=== PATIENT | male | born 1930 | race Caucasian/White ===

== ENCOUNTER 2016-12-07 09:52 | Emergency (ER) | payer OTHER ==
[~2016-12-07] VITALS: Wt 86.0 kg
[~2016-12-07 09:52] MED LIST: ASPI81TA3 PO; BACTDS PO; CEPH-443 PO; LEVE-5 PO; LISI20TA11 PO
[2016-12-07] MEDS ORDERED: DIPHTH/TET/ACEL PERTUSS (ADULT) 0.5 ML VIAL IM* ONE (11:00)
[2016-12-07] MEDS ORDERED: ACETAMINOPHEN 500 MG TAB PO ONE (11:00)
--- NOTE | 2016-12-07 11:50 | RADRPT ---
PROCEDURE: CT Brain without contrast. CLINICAL INDICATION: Pain, headache TECHNIQUE: Routine CT scan of the brain was performed on a high resolution multi detector scanner without intravenous contrast. One or more of the following dose reduction techniques were used: Auto mated exposure control; Adjustment of the mA and/or kV according to patient size; Use of iterative r econstruction technique. CTDI = 45 mGy. DLP = 720 mGy-cm. COMPARISON: No prior relevant examinations are available for comparison. FINDINGS: Hemorrhage: No evidence of intracranial hemorrhage. Acute ischemic changes: No evidence of acute ischemic changes. Mass effect/Midline shift: None. Parenchymal volume: Moderate central parenchymal volume loss is evident. Ventricular system: Concordant with parenchymal volume. Chronic changes: There are numerous and confluent areas of significant low attenuation change within the supratentorial white matter most compatible with severe chronic microvascular ischemic changes. Atherosclerotic calcifications of the cavernous portions of both internal carotid arteries are prese nt. Extracranial soft tissues: Right parietal scalp hematoma. Calvarium: No fractures. Paranasal sinuses: Visualized paranasal sinuses are clear. Mastoid air cells: Visualized mastoid air cells are clear. IMPRESSION: No acute intracranial abnormalities. Severe chronic-appearing microvascular ischemic changes of the supratentorial white matter. Right parietal scalp hematoma without underlying fracture. RPTAT: AADD .Sonu Shah MD, Date Time Electronically viewed and signed by .Sonu Shah MD, on 12/07/2016 11:50 .B/
--- NOTE | 2016-12-07 11:57 | RADRPT ---
PROCEDURE: CT Cervical Spine without contrast. CLINICAL INDICATION: Trauma. TECHNIQUE: Noncontrast CT of the cervical spine was performed with axial images. Coronal and sagitta l images were also performed. The administered radiation dose was CTDI vol = 22.24 mGy, DLP = 500.2 8 mGy-cm. COMPARISON: There are no similar studies submitted for comparison. FINDINGS: There is straightening of the normal cervical lordosis. The vertebral body heights are maintained. There is no destructive osseous lesion. No acute fracture is identified. There is mild to moderate C3-C4, moderate C4-C5, severe C5-C6, severe C6-C7, and severe C7-T1 disk s pace narrowing. C2-C3 : There is a 1 mm broad-based disk bulge without spinal canal or bilateral foraminal stenosis. There is mild left facet arthropathy. C3-C4 : There is trace anterolisthesis with a 2 mm central disk/osteophyte protrusion with mild spin al canal stenosis. There is severe right with mild left facet arthropathy and bilateral uncovertebr al hypertrophy causing severe right without left foraminal stenosis. This affects the exiting right C4 nerve root. C4-C5 : There is trace anterolisthesis with a broad-based pseudo disk bulge contacting the spinal co rd without spinal canal stenosis. There is severe right with moderate left facet arthropathy and bi lateral uncovertebral hypertrophy causing severe right with moderate to severe left foraminal stenos is. This affects the exiting bilateral C5 nerve roots. C5-C6 : There is a 2 mm broad-based disk osteophyte complex mildly indenting the spinal cord with mi ld to moderate spinal canal stenosis. There is moderate right and mild left facet arthropathy and b ilateral uncovertebral hypertrophy causing severe right with moderate to severe left foraminal steno sis. This affects the exiting bilateral C6 nerve roots. C6-C7 : There is a 4 mm left subarticular disk osteophyte complex mildly indenting the spinal cord w ith moderate spinal canal stenosis. There is bilateral uncovertebral hypertrophy causing severe lef t with moderate right foraminal stenosis. This affects the exiting left C7 nerve root. C7-T1 : There is a 2 mm circumferential disk osteophyte complex with mild spinal canal stenosis. Th ere is mild bilateral facet arthropathy and bilateral uncovertebral hypertrophy causing severe bilat eral foraminal stenosis. This affects the exiting bilateral C8 nerve roots. IMPRESSION: 1. No acute fracture. 2. Multilevel spinal canal stenosis most pronounced at C6-C7 where there is a left subarticular disk osteophyte complex mildly indenting the spinal cord with moderate spinal canal stenosis. There is l imited evaluation of the spinal cord on CT. If clinically considered for spinal cord contusion, non contrast MRI of the cervical spine may be performed as clinically warranted. 3. Multilevel bilateral foraminal stenosis affecting the exiting right C4, bilateral C5, bilateral C 6, left C7, and bilateral C8 nerve roots as detailed above. Further findings as detailed above. RPTAT: PP .Harrison Cagle MD, MD Date Time Electronically viewed and signed by .Harrison Cagle MD, MD on 12/07/2016 11:57 .F/
--- NOTE | 2016-12-07 11:58 | ERD ---
ER Documentation Chief Complaint Date/Time DATE: 12/07/16 TIME: 11:55 Chief Complaint fell from a standing position and has scalp laceration. no loc per family HPI Mr. Alcazar is a very pleasant 86-year-old gentleman who had a mechanical fall. The patient states that he tripped while walking near a curb. He states that his feet became tangled. He denied any prodrome of chest pain or shortness of breath. The patient fell backwards hitting his head. The patient has a large occipital hematoma with associated abrasion. Unknown tetanus. No loss of consciousness. He denies any neck pain. No other musculoskeletal pain. He denies taking anticoagulant medication. ROS All systems reviewed and are negative except as per history of present illness. Medications Home Meds Reported Medications Lisinopril* (Lisinopril*) 20 Mg Tablet, 20 MG PO DAILY, #30 TAB 05/30/16 Aspirin* (Aspirin* Chew) 81 Mg Tab.chew, 81 MG PO DAILY, TAB.CHEW 05/30/16 Levetiracetam* (Keppra*) 500 Mg Tablet, 500 MG PO BID, TAB 05/30/16 Discontinued Scripts Cephalexin* (Keflex*) 500 Mg Capsule, 500 MG PO QID for 7 Days, CAP Prov:CHAKA GIRALDO MD 05/30/16 Sulfamethoxazole-Trimethoprim* (Bactrim* DS) 800-160 Mg Tab, 1 TAB PO BID for 7 Days, TAB Prov:CHAKA GIRALDO MD 05/30/16 Allergies Allergies: Coded Allergies: No Known Allergy (Unverified , 12/07/16) PMhx/Soc History of Surgery: Yes (CATARACTS; SKIN CANCER) Anesthesia Reaction: No Hx Neurological Disorder: No Hx Respiratory Disorders: No Hx Cardiac Disorders: Yes (HTN) Hx Psychiatric Problems: No Hx Alcohol Use: No Hx Substance Use: No Hx Tobacco Use: No FmHx Family History: No diabetes Physical Exam Vitals Vital Signs Date Time Temp Pulse Resp B/P Pulse Ox O2 Delivery O2 Flow Rate FiO2 12/07/16 09:58 97.9 76 16 228/108 96 Physical Exam Airway is intact Bilateral breath sounds Strong distal pulses No obvious deficits General: Well developed, well nourished, no acute distress Head: Normocephalic, atraumatic, other than a 2 cm occipital scalp laceration with associated abrasion Eyes: Pupils equally reactive, EOM intact ENT: Moist mucous membranes Neck: Supple, no lymphadenopathy, No midline tenderness, deformities, step-offs to the cervical spine, full active and passive range of motion without midline pain. Respiratory: Lungs clear bilaterally, no distress, no chest wall tenderness, no crepitus Cardiovascular: RRR, no murmurs, rubs, or gallops Abdominal: Soft, non-tender, non-distended, no peritoneal signs, pelvis is stable : Deferred MSK: No edema, no unilateral swelling, 5/5 strength, no midline tenderness deformities or step-offs to the thoracolumbar spine Neurologic: Alert and oriented, moving all extremities, normal speech, no focal weakness, no cerebellar signs Skin: No ecchymoses or bruising to the chest or abdomen. Scalp hematoma and abrasion as documented above Psych: Normal mood Results 24 hrs Current Medications Medications (Trade) Dose Ordered Sig/Luis Route PRN Reason Start Time Stop Time Status Last Admin Dose Admin Acetaminophen (Tylenol Tab) 1,000 mg ONCE ONCE PO 12/07/16 11:00 12/07/16 11:01 DC Diphtheria/ Tetanus/Acell Pertussis (Adacel) 0.5 ml ONCE ONCE IM* 12/07/16 11:00 12/07/16 11:01 DC 12/07/16 11:58 Procedures/MDM EKG, MONITORS, & DIAGNOSTIC IMAGING: CT brain: IMPRESSION: No acute intracranial abnormalities. Severe chronic-appearing microvascular ischemic changes of the supratentorial white matter. Right parietal scalp hematoma without underlying fracture. RPTAT: AADD CT cervical spine: No acute fracture MEDICAL DECISION MAKING: The patient gives an accurate history and clear description of mechanical fall. No signs or symptoms concerning for syncope. The patient will have tetanus updated. CT imaging of head and cervical spine given the patient's age would be appropriate. Otherwise he has no neck pain. The patient has been evaluated no other musculoskeletal injuries noted. The patient does take Keppra, no witnessed seizure. ER COURSE: The wound was thoroughly cared for and irrigated, tetanus updated, Tylenol given. Diagnostic imaging is unrevealing. The patient passed a get up and go test and is otherwise well-appearing with good resources. The patient is safe for discharge home. I kept the patient and/or family informed of laboratory and diagnostic imaging results throughout the emergency room course. DISPOSITION PLAN: We discussed follow up with the patient's primary care doctor within 24 to 48 hours as needed. We also discussed return to the emergency room for worsening symptoms or worsening condition. Discharge Medications: Tylenol Departure Diagnosis: Primary Impression: Closed head injury Encounter type: initial encounter Qualified Code: S09.90XA - Closed head injury, initial encounter Additional Impression: Hematoma of occipital surface of head Encounter type: initial encounter Qualified Code: S00.83XA - Hematoma of occipital surface of head, initial encounter Condition: Stable DIONNA GOLDBERG MD Dec 07, 2016 11:58
[2016-12-07] MEDS ORDERED: ACET500C5 PO (12:05)
[2016-12-07 12:33] VITALS: BP 135/74; PULSE 71; RESP 18; TEMP 98.6
== END 2016-12-07 12:36 | disposition home or self-care (01) ==
LOC: E/R 09:52
DX: S09.90XA Unspecified injury of head, initial encounter (principal); R40.2252 Coma scale, best verbal response, oriented, at arrival to emergency department; S00.83XA Contusion of other part of head, initial encounter; I10 Essential (primary) hypertension; R40.2362 Coma scale, best motor response, obeys commands, at arrival to emergency department; R40.2142 Coma scale, eyes open, spontaneous, at arrival to emergency department; W01.0XXA Fall on same level from slipping, tripping and stumbling without subsequent striking against object, initial encounter; Y92.9 Unspecified place or not applicable; Z85.828 Personal history of other malignant neoplasm of skin; Z79.82 Long term (current) use of aspirin; Z23 Encounter for immunization
CPT/HCPCS: 70450; 72125; 90471; 90715

== ENCOUNTER 2016-12-11 09:23 | Emergency (ER) | payer OTHER ==
[~2016-12-11] VITALS: Ht 170.2 cm; Wt 87.0 kg
[~2016-12-11 09:23] MED LIST changes: +ACET500C5 PO; -BACTDS PO; -CEPH-443 PO
[2016-12-11 09:25] VITALS: Ht 170.2 cm; Wt 87.0 kg
--- NOTE | 2016-12-11 09:41 | ERD ---
ER Documentation Chief Complaint Date/Time DATE: 12/11/16 TIME: 09:40 Chief Complaint MECHANICAL FALL LAST SATURDAY - HEAD SWELLING; NO KO HPI 86-year-old male presents to the emergency department for a wound check. Patient is status post a fall with a head injury a few days ago. He was evaluated in our emergency department with a CT scan that demonstrated no intracranial findings. Since then, according to the patient and his friend, he is been neurologically normal with no headache and no other symptoms. ROS All systems reviewed and are negative except as per history of present illness. Medications Home Meds Active Scripts Acetaminophen* (Tylophen*) 500 Mg Capsule, 2 CAP PO Q8H Y for PAIN AND OR ELEVATED TEMP, #20 CAP Prov:DIONNA GOLDBERG MD 12/07/16 Reported Medications Lisinopril* (Lisinopril*) 20 Mg Tablet, 20 MG PO DAILY, #30 TAB 05/30/16 Aspirin* (Aspirin* Chew) 81 Mg Tab.chew, 81 MG PO DAILY, TAB.CHEW 05/30/16 Levetiracetam* (Keppra*) 500 Mg Tablet, 500 MG PO BID, TAB 05/30/16 Discontinued Scripts Cephalexin* (Keflex*) 500 Mg Capsule, 500 MG PO QID for 7 Days, CAP Prov:CHAKA GIRALDO MD 05/30/16 Sulfamethoxazole-Trimethoprim* (Bactrim* DS) 800-160 Mg Tab, 1 TAB PO BID for 7 Days, TAB Prov:CHAKA GIRALDO MD 05/30/16 Allergies Allergies: Coded Allergies: No Known Allergy (Unverified , 12/07/16) PMhx/Soc History of Surgery: Yes (CATARACTS; SKIN CANCER) Anesthesia Reaction: No Hx Neurological Disorder: No Hx Respiratory Disorders: No Hx Cardiac Disorders: Yes (HTN) Hx Psychiatric Problems: No Hx Alcohol Use: No Hx Substance Use: No Hx Tobacco Use: No FmHx Noncontributory for chief complaint Physical Exam Vitals Vital Signs Date Time Temp Pulse Resp B/P Pulse Ox O2 Delivery O2 Flow Rate FiO2 12/11/16 09:25 98.5 72 18 218/98 97 Physical Exam General: well developed, well nourished, in no distress. Neuro: Normal speech, broad-based gait, balance HEENT: Patient has a hematoma on the occipital scalp with no evidence of bleeding. This is not expanding. There is no evidence of wound infection. Procedures/MDM Patient was taken to a room, seen and examined Medical decision makin-year-old male presents the emergency department essentially for a wound check. At this time, patient shows no evidence of high risk intracranial concerns. Patient is neurologically normal and seems to be healing. ER is already had a negative CT scan and therefore imaging is not necessary to repeat. He appears to be appropriate for outpatient care. Departure Diagnosis: Primary Impression: Head injury Condition: Stable Patient Instructions: HEAD INJURY, No Wake-Up (Adult) SOLO MCLEAN Dec 11, 2016 09:41
[2016-12-11 10:29] VITALS: BP 167/89; PULSE 77; RESP 19; TEMP 98.6
== END 2016-12-11 10:30 | disposition home or self-care (01) ==
LOC: E/R 09:23
DX: S09.90XD Unspecified injury of head, subsequent encounter (principal); I10 Essential (primary) hypertension; X58.XXXD Exposure to other specified factors, subsequent encounter; Z79.82 Long term (current) use of aspirin; Z85.828 Personal history of other malignant neoplasm of skin
CPT/HCPCS: 99283

== ENCOUNTER 2016-12-27 15:36 | Emergency (ER) | payer OTHER ==
[~2016-12-27] VITALS: Wt 80.0 kg
[2016-12-27] MEDS ORDERED: LIDOCAINE 1% (MDV) 20 ML INJ SC ONE (18:00)
[2016-12-27] MEDS ORDERED: ACETAMINOPHEN 500 MG TAB PO STA (18:16)
--- NOTE | 2016-12-27 19:03 | RADRPT ---
PROCEDURE: CT Brain without contrast. CLINICAL INDICATION: Trauma TECHNIQUE: Axial images from the skull base through the vertex without IV contrast. Multiplanar r eformatted images were made. Images were reviewed on a PACS workstation. The CTDIvol is 43.48 mGy and the DLP is 720.23 mGycm. One or more of the following dose reduction techniques were used: auto mated exposure control, adjustment of the mA and/or kV according to patient size, or use of iterativ e reconstruction technique. COMPARISON: 12/07/2016 FINDINGS: There is atrophy and chronic microvascular ischemic change. There is no evidence for acute territor ial infarction or intracranial hemorrhage. No mass or midline shift is seen. No intra or extra-axi al fluid collection is seen. No calvarial fracture is seen. There are contusions of the left and right parietal scalp at the vertex with skin berta seen on the left. The visualized paranasal sin uses and mastoids are clear. IMPRESSION: Atrophy and chronic microvascular ischemic changes. Scalp lacerations with left-sided skin berta. RPTAT: HLBE Physician Boyd Date Time Electronically viewed and signed by Physician Boyd on 12/27/2016 19:03 LE/
--- NOTE | 2016-12-27 19:11 | RADRPT ---
PROCEDURE: CT cervical spine without contrast CLINICAL INDICATION: Trauma TECHNIQUE: CT scan of the cervical spine [facility] No [facility] contrast was administered. Coronal and sagittal reformatted images were obtained from th e axial source images. Images were reviewed on a high-resolution PACS workstation. Exam CTDI = 20.0 4 mGy and the DLP = 411.95 mGy-cm. One or more of the following dose reduction techniques were used: - Automated exposure control. - Adjustment of the mA and/or kV according to patient size. - Use of iterative reconstruction technique. COMPARISON: 12/07/2016 FINDINGS: No acute fracture or dislocation is seen. Facet degenerative changes at multiple levels. There is ap proximate 2 mm anterior displacement of C3 vertebral body on C4 and 2.5 mm anterior displacement of C4 vertebral body on C5 consistent with degenerative changes not significantly changed compared to p revious study. Degenerative disk changes are seen C3-4 through C7-T1. Uncovertebral degenerative ch anges in the mid to lower cervical spine. Foraminal stenosis at multiple levels. Arterial calcifica tion. IMPRESSION: No acute fracture or dislocation seen. Degenerative changes. Please see above. RPTAT: HJES .Jamie Beckham MD, Date Time Electronically viewed and signed by .Jamie Beckham MD, on 12/27/2016 19:11 .S/
--- NOTE | 2016-12-27 19:36 | ERD ---
ER Documentation Chief Complaint Date/Time DATE: 12/27/16 TIME: 19:33 Chief Complaint GROUND LEVEL TRIP AND FALL HEAD INJURY WITH SCALP LAC NO LOC HPI This 86-year-old male is brought by his friend after tripping and falling hitting the back of his head today. Is a small laceration per there is no history of loss of consciousness, vomiting, neck pain, weakness. His tetanus is up-to-date. ROS All systems reviewed and are negative except as per history of present illness. Medications Home Meds Active Scripts Acetaminophen* (Tylophen*) 500 Mg Capsule, 2 CAP PO Q8H Y for PAIN AND OR ELEVATED TEMP, #20 CAP Prov:DIONNA GOLDBERG MD 12/07/16 Reported Medications Lisinopril* (Lisinopril*) 20 Mg Tablet, 20 MG PO DAILY, #30 TAB 05/30/16 Aspirin* (Aspirin* Chew) 81 Mg Tab.chew, 81 MG PO DAILY, TAB.CHEW 05/30/16 Levetiracetam* (Keppra*) 500 Mg Tablet, 500 MG PO BID, TAB 05/30/16 Allergies Allergies: Coded Allergies: No Known Allergy (Unverified , 12/27/16) PMhx/Soc History of Surgery: Yes (CATARACTS; SKIN CANCER) Anesthesia Reaction: No Hx Neurological Disorder: No Hx Respiratory Disorders: No Hx Cardiac Disorders: Yes (HTN) Hx Psychiatric Problems: No Hx Miscellaneous Medical Probl: No Hx Alcohol Use: No Hx Substance Use: No Hx Tobacco Use: No Smoking Status: Never smoker Physical Exam Vitals Vital Signs Date Time Temp Pulse Resp B/P Pulse Ox O2 Delivery O2 Flow Rate FiO2 12/27/16 18:17 76 18 184/72 99 Room Air 12/27/16 17:49 78 18 206/98 97 Room Air 12/27/16 16:00 98.5 78 20 208/115 97 Physical Exam Const: [] Alert, [id number]. Head: Is approximately 1 cm superficial laceration on the exhibit without step -offs or deformities. Eyes: Normal Conjunctiva ENT: Normal External Ears, Nose and Mouth. Neck: Full range of motion..~ No meningismus. Neck nontender no deformities appreciated. Resp: Clear to auscultation bilaterally Cardio: Regular rate and rhythm, no murmurs Abd: Soft, non tender, non distended. Normal bowel sounds Skin: No petechiae or rashes Back: No midline or flank tenderness Ext: No cyanosis, or edema Neur: Awake and alert. No appreciable focal neurologic deficits. Psych: Normal Mood and Affect Results 24 hrs Current Medications Medications (Trade) Dose Ordered Sig/Luis Route PRN Reason Start Time Stop Time Status Last Admin Dose Admin Lidocaine (Xylocaine 1% (Mdv) 20 ml) 20 ml ONCE ONCE SC 12/27/16 18:00 12/27/16 18:01 DC Acetaminophen (Tylenol Tab) 500 mg ONCE STAT PO 12/27/16 18:16 12/27/16 18:17 DC 12/27/16 18:32 Procedures/MDM CT brain shows no acute abnormalities and CT cervical spine shows degenerative changes without fracture or dislocation noted. Patient is given Tylenol 500 mg by mouth. Procedure note-scalp laceration was irrigated with normal saline. 1 cc of lidocaine was used for local infiltration. 2 berta were placed without complications. Patient was stable throughout the course no evidence of neurologic deficits. He will be discharged home with instructions for wound check in 2 days and staple removal in 7 days. He should return sooner for vomiting, neurologic findings, fevers, new worsening symptoms as directed after instructions. Patient was noted to have elevated blood pressure at triage. Review of his last few visits shows that he does have elevated blood pressure which improves with position. The repeat blood pressure in sitting position was much more satisfactory. Patient will be advised to follow-up with primary doctor for recheck. No signs or symptoms or complaints to suggest endorgan damage from acute hypertension. Departure Diagnosis: Primary Impression: Head injury Encounter type: initial encounter Qualified Code: S09.90XA - Head injury, initial encounter Additional Impressions: Scalp laceration Encounter type: initial encounter Qualified Code: S01.01XA - Scalp laceration, initial encounter Hypertension Hypertension type: essential hypertension Qualified Code: I10 - Essential hypertension Condition: Stable Patient Instructions: HEAD INJURY, No Wake-Up (Adult), High Blood Pressure ( Hypertension), Laceration, Scalp Additional Instructions: CT scan of head and cervical spine normal today. Recommend wound check in 2 days and staple removal in 7 days. Recheck sooner for new or worsening symptoms. See primary doctor for elevated blood pressure and primary care. ANAMARIA LEVIN MD Dec 27, 2016 19:36
[2016-12-27 19:46] VITALS: BP 179/77; PULSE 72; RESP 18; TEMP 98.7
== END 2016-12-27 19:54 | disposition home or self-care (01) ==
LOC: FTE 15:36
DX: S01.01XA Laceration without foreign body of scalp, initial encounter (principal); I10 Essential (primary) hypertension; W01.0XXA Fall on same level from slipping, tripping and stumbling without subsequent striking against object, initial encounter; Y92.9 Unspecified place or not applicable; Z85.828 Personal history of other malignant neoplasm of skin; Z79.82 Long term (current) use of aspirin
CPT/HCPCS: 70450; 72125

== ENCOUNTER 2017-06-19 14:14 | Emergency (ER) | payer OTHER ==
[~2017-06-19] VITALS: Ht 172.7 cm; Wt 84.0 kg
[2017-06-19 14:18] VITALS: Ht 172.7 cm; Wt 84.0 kg
--- NOTE | 2017-06-19 16:04 | RADRPT ---
PROCEDURE: XR Right Ankle. CLINICAL INDICATION: Right ankle pain. TECHNIQUE: 3 views. Frontal, lateral, and oblique. COMPARISON: None. FINDINGS: There is no fracture or dislocation. There is diffuse soft tissue swelling. There are degenerative changes of the midfoot with osteophytes noted. There is no lytic or blastic lesion. There is no radiopaque foreign body. IMPRESSION: 1. Diffuse soft tissue swelling. 2. Degenerative changes of the midfoot. 3. No acute abnormality. RPTAT: QQ .Moshe Gracia MD, MD Date Time Electronically viewed and signed by .Moshe Gracia MD, MD on 06/19/2017 16:04 .R/
--- NOTE | 2017-06-19 16:29 | RADRPT ---
PROCEDURE: US Lower extremity Venous. CLINICAL INDICATION: Pain and swelling TECHNIQUE: Multiple sonographic images of the right lower extremity deep venous system was obtaine d utilizing grayscale, color-flow, compressive sonography and doppler imaging with augmentation. Th e images were reviewed on a PACS workstation. COMPARISON: None. FINDINGS: There is normal compressibility and flow within the right common femoral, deep femoral, superficial femoral and popliteal veins. Normal respiratory variation and augmentation is seen. There is normal color flow and compressibility of right posterior tibial and peroneal veins IMPRESSION: No sonographic evidence for right lower extremity deep venous thrombosis. RPTAT: HH .Kang Mclean MD, MD Date Time Electronically viewed and signed by .Kang Mclean MD, on 06/19/2017 16:29 .W/
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
[2017-06-19 17:33] VITALS: BP 155/64; PULSE 84; RESP 18; TEMP 97.3
== END 2017-06-19 17:44 | disposition home or self-care (01) ==
LOC: FTE 14:14
DX: R22.41 Localized swelling, mass and lump, right lower limb (principal); I10 Essential (primary) hypertension; Z79.82 Long term (current) use of aspirin; Z85.828 Personal history of other malignant neoplasm of skin
CPT/HCPCS: 93971

== ENCOUNTER 2017-08-17 10:23 | Emergency (ER) | payer OTHER ==
[~2017-08-17] VITALS: Ht 170.2 cm; Wt 82.0 kg
[2017-08-17 10:24] VITALS: Ht 170.2 cm; Wt 82.0 kg
[2017-08-17] MEDS ORDERED: SOD CHLORIDE 0.9% 500 ML IV STA (11:53)
[2017-08-17 12:23] LABS: BASOPHILS % 0.4 % (0.0-2.0); EOSINOPHILS # 0.2 10^3/ul (0.0-0.5); HEMATOCRIT 45.7 % (42.0-52.0); HEMOGLOBIN 15.3 g/dl (14.0-18.0); LYMPHOCYTES # 1.4 10^3/ul (0.8-2.9); LYMPHOCYTES % 19.2 % (15.0-51.0); MEAN CORPUSCULAR HEMOGLOBIN 30.5 pg (29.0-33.0); MEAN CORPUSCULAR HGB CONC 33.5 g/dl (32.0-37.0); MEAN PLATELET VOLUME 11.1 fl (7.4-10.4); MONOCYTE # 0.6 10^3/ul (0.3-0.9); MONOCYTES % 8.5 % (0.0-11.0); NEUTROPHIL # 5.1 10^3/ul (1.6-7.5); NEUTROPHILS % 69.4 % (39.0-77.0); PLATELET COUNT 221 10^3/UL (140-415); RED BLOOD COUNT 5.02 10^6/ul (4.70-6.10); RED CELL DISTRIBUTION WIDTH 13.4 % (11.5-14.5); WHITE BLOOD COUNT 7.4 10^3/ul (4.8-10.8)
[2017-08-17 12:39] LABS: ALBUMIN/GLOBULIN RATIO 1.33; BILIRUBIN,INDIRECT 0.5 mg/dl (0-1.1); BILIRUBIN,TOTAL 0.5 mg/dl (0.2-1.3); CREATININE 1.06 mg/dl (0.61-1.24); POTASSIUM 4.2 mmol/L (3.5-5.1)
[2017-08-17 13:22] LABS: ADD UMIC YES; UR ASCORBIC ACID NEGATIVE (NEGATIVE); UR BILIRUBIN (Dip) NEGATIVE (NEGATIVE); UR BLOOD (Dip) 1+ mg/dL (NEGATIVE); UR CLARITY CLEAR (CLEAR); UR COLOR YELLOW (YELLOW); UR GLUCOSE (Dip) NEGATIVE (NEGATIVE); UR KETONES (Dip) NEGATIVE (NEGATIVE); UR LEUKOCYTE ESTERASE (Dip) NEGATIVE Leu/ul (NEGATIVE); UR MUCUS FEW /HPF (NONE SEEN); UR NITRITE (Dip) NEGATIVE (NEGATIVE); UR RBC 2 /HPF (0-5); UR SPECIFIC GRAVITY (Dip) 1.017 (1.003-1.030); UR TOTAL PROTEIN (Dip) NEGATIVE (NEGATIVE); UR UROBILINOGEN (Dip) NEGATIVE (NEGATIVE)
[2017-08-17] MEDS ORDERED: LISI40TA9 PO (13:57)
[2017-08-17] MEDS ORDERED: AMLO5TAB4 PO (13:58)
[2017-08-17] MEDS ORDERED: ATOR10TA65 PO (13:58)
--- NOTE | 2017-08-17 16:01 | RADRPT ---
PROCEDURE: CT abdomen and pelvis without contrast. CLINICAL INDICATION: Abdominal pain. TECHNIQUE: CT scan of the abdomen and pelvis without contrast was performed on a multi-slice CT [facility] . Sagittal and coronal reformatted images were obtained from the axial source images. One or more of the following dose reduction techniques were used: - Automated exposure control. - Adjustment of the mA and/or kV according to patient size. - Use of iterative reconstruction technique. DLP 767 mGycm. CTDIvol 14.1 mGy COMPARISON: None FINDINGS: The lung bases are clear. Coronary artery calcifications are seen in the heart. There is limited evaluation of the solid viscera from the lack of IV contrast. There is a 4 mm stone within the distal left ureter causing mild obstruction. This results in assoc iated mild hydroureter and hydronephrosis with mild perinephric fat stranding. No ureteral stone or hydronephrosis is seen on the contralateral side. No other renal calculi are present bilaterally. B ilateral hypodensities are present within the kidneys most compatible with renal cyst. There is normal density of the liver with no gross focal lesion or biliary ductal dilatation. The gallbladder demonstrates several calcified gallstones. The spleen is unremarkable without mass. The adrenal glands are within normal limits without mass. The pancreas is unremarkable without focal lesion or surrounding inflammatory changes. There is no bowel obstruction or focal bowel inflammation. The appendix is unremarkable. There is diverticulosis without diverticulitis. There is no free air or free fluid. There are no enlarged l ymph nodes. The prostate gland is enlarged and indents the bladder base. It measures 6.3 x 4.3 cm. The aorta is unremarkable and there is no acute osseous abnormality. There is aortic atherosclerosi s without aneurysmal dilatation. Degenerative changes are seen in the lumbar spine with no acute os seous abnormality. The uterus and adnexal structures within normal limits. IMPRESSION: Obstructing 4 mm stone is seen on the left side located in the left distal ureter. This causes 1 ou nce left hydronephrosis. There is no hydronephrosis or ureteral stone on the contralateral side. No evidence of bowel obstruction or inflammation. There is diverticulosis without diverticulitis. Atherosclerotic disease is present. Enlarged prostate gland indenting the bladder base. Bilateral renal hypodensities, probable renal cysts. RPTAT: AA .Ju Lanza MD, MD Date Time Electronically viewed and signed by .Ju Lanza MD, MD on 08/17/2017 16:00 ./
[2017-08-17] MEDS ORDERED: TAMS-14 PO (17:15)
[2017-08-17] MEDS ORDERED: HYDR-905 PO (17:15)
--- NOTE | 2017-08-17 17:21 | ERD ---
ER Documentation Chief Complaint Date/Time DATE: 08/17/17 TIME: 17:16 Chief Complaint DYSURIA ,ABDOMINAL PAIN HPI This is an 87-year-old male who complains of urinary frequency. The patient's a very poor historian and states that for the past 2 days he has had some difficulty voiding. He said today when he was trying to void he was having some hesitancy and some pain in the suprapubic region but he points to his left side as well. He has had no hematuria no chest pain shortness of breath no vomiting or diarrhea.. The patient states he does not know if he has an enlarged prostate ROS All systems reviewed and are negative except as per history of present illness. Medications Home Meds Active Scripts Tamsulosin Hcl* (Flomax*) 0.4 Mg Cap.er.24h, 0.4 MG PO BID, #30 CAP Prov:DOROTHEA BETTS DO 08/17/17 Hydrocodone/Acetaminophen ([place] 7.5-325 Tablet) 1 Each Tablet, 1 EACH PO q 4-6 hours, #20 TAB Prov:DOROTHEA BETTS DO 08/17/17 Reported Medications Atorvastatin Calcium (Atorvastatin Calcium) 10 Mg Tablet, 10 MG PO QHS, #30 TAB 08/17/17 Amlodipine Besylate* (Norvasc*) 5 Mg Tablet, 5 MG PO DAILY, TAB 08/17/17 Lisinopril* (Lisinopril*) 40 Mg Tablet, 40 MG PO DAILY, #30 TAB 08/17/17 Levetiracetam* (Keppra*) 500 Mg Tablet, 500 MG PO BID, TAB 05/30/16 Discontinued Reported Medications Lisinopril* (Lisinopril*) 20 Mg Tablet, 20 MG PO DAILY, #30 TAB 05/30/16 Aspirin* (Aspirin* Chew) 81 Mg Tab.chew, 81 MG PO DAILY, TAB.CHEW 05/30/16 Discontinued Scripts Acetaminophen* (Tylophen*) 500 Mg Capsule, 2 CAP PO Q8H Y for PAIN AND OR ELEVATED TEMP, #20 CAP Prov:DIONNA GOLDBERG MD 12/07/16 Allergies Allergies: Coded Allergies: No Known Allergy (Unverified , 08/17/17) PMhx/Soc Medical and Surgical Hx: pt denies Medical Hx, pt denies Surgical Hx History of Surgery: Yes (CATARACTS; SKIN CANCER) Anesthesia Reaction: No Hx Neurological Disorder: No Hx Respiratory Disorders: No Hx Cardiac Disorders: Yes (HTN) Hx Psychiatric Problems: No Hx Miscellaneous Medical Probl: No Hx Alcohol Use: No Hx Substance Use: No Hx Tobacco Use: No Smoking Status: Never smoker FmHx Family History: No coronary disease Physical Exam Vitals Vital Signs Date Time Temp Pulse Resp B/P Pulse Ox O2 Delivery O2 Flow Rate FiO2 08/17/17 10:24 96.6 54 19 190/98 97 Physical Exam Const: Well-developed, well-nourished Head: Atraumatic, normocephalic Eyes: Normal Conjunctiva, PERRLA, EOMI, normal sclera, no nystagmus ENT: Normal External Ears, Nose and Mouth, moist mucus membranes. Neck: Full range of motion. No meningismus, no lymphadenopathy. Resp: Clear to auscultation bilaterally, no wheezing, rhonchi, rales Cardio: Regular rate and rhythm, no murmurs, S1 S2 present Abd: Soft, non tender x 4, non distended. Normal bowel sounds, no guarding or rebound, no pulsitile abdominal masses or bruits Skin: No petechiae or rashes, no ecchymosis , no maculopapular rash Back: No midline or flank tenderness Ext: No cyanosis, or edema, FROM x 4, normal inspection, neurovascularly intact x 4 Neur: Awake and alert, STR 5/5 x 4, sensation intact x 4, no focal findings, cerebellum intact Psych: Normal Mood and Affect Result Diagram: 08/17/17 1130 08/17/17 1130 Results 24 hrs Laboratory Tests Test 08/17/17 11:30 08/17/17 13:00 White Blood Count 7.410^3/ul Red Blood Count 5.0210^6/ul Hemoglobin 15.3g/dl Hematocrit 45.7% Mean Corpuscular Volume 91.0fl Mean Corpuscular Hemoglobin 30.5pg Mean Corpuscular Hemoglobin Concent 33.5g/dl Red Cell Distribution Width 13.4% Platelet Count 59916^3/UL Mean Platelet Volume 11.1fl Neutrophils % 69.4% Lymphocytes % 19.2% Monocytes % 8.5% Eosinophils % 2.0% Basophils % 0.4% Nucleated Red Blood Cells % 0.0/100WBC Neutrophils # 5.110^3/ul Lymphocytes # 1.410^3/ul Monocytes # 0.610^3/ul Eosinophils # 0.210^3/ul Basophils # 0.010^3/ul Nucleated Red Blood Cells # 0.010^3/ul Sodium Level 143mmol/L Potassium Level 4.2mmol/L Chloride Level 107mmol/L Carbon Dioxide Level 29mmol/L Anion Gap 11 Blood Urea Nitrogen 20mg/dl Creatinine 1.06mg/dl Glucose Level 98mg/dl Calcium Level 10.0mg/dl Total Bilirubin 0.5mg/dl Direct Bilirubin 0.00mg/dl Indirect Bilirubin 0.5mg/dl Aspartate Amino Transf (AST/SGOT) 27IU/L Alanine Aminotransferase (ALT/SGPT) 36IU/L Alkaline Phosphatase 98IU/L Total Protein 7.0g/dl Albumin 4.0g/dl Globulin 3.00g/dl Albumin/Globulin Ratio 1.33 Urine Color YELLOW Urine Clarity CLEAR Urine pH 5.0 Urine Specific [place] 1.017 Urine Ketones NEGATIVEmg/dL Urine Nitrite NEGATIVEmg/dL Urine Bilirubin NEGATIVEmg/dL Urine Urobilinogen NEGATIVEmg/dL Urine Leukocyte Esterase NEGATIVELeu/ul Urine Microscopic RBC 2/HPF Urine Microscopic WBC 1/HPF Urine Mucus FEW/HPF Urine Hemoglobin 1+mg/dL Urine Glucose NEGATIVEmg/dL Urine Total Protein NEGATIVEmg/dl Current Medications Medications (Trade) Dose Ordered Sig/Luis Route PRN Reason Start Time Stop Time Status Last Admin Dose Admin Sodium Chloride (NS) 500 ml @ 500 mls/hr Q1H STAT IV 08/17/17 11:53 08/17/17 12:52 DC 08/17/17 12:32 Procedures/MDM PROCEDURE: CT abdomen and pelvis without contrast. CLINICAL INDICATION: Abdominal pain. TECHNIQUE: CT scan of the abdomen and pelvis without contrast was performed on a multi-slice CT scanner . Sagittal and coronal reformatted images were obtained from the axial source images. One or more of the following dose reduction techniques were used: - Automated exposure control. - Adjustment of the mA and/or kV according to patient size. - Use of iterative reconstruction technique. DLP 767 mGycm. CTDIvol 14.1 mGy COMPARISON: None FINDINGS: The lung bases are clear. Coronary artery calcifications are seen in the heart. There is limited evaluation of the solid viscera from the lack of IV contrast. There is a 4 mm stone within the distal left ureter causing mild obstruction. This results in associated mild hydroureter and hydronephrosis with mild perinephric fat stranding. No ureteral stone or hydronephrosis is seen on the contralateral side. No other renal calculi are present bilaterally. Bilateral hypodensities are present within the kidneys most compatible with renal cyst. There is normal density of the liver with no gross focal lesion or biliary ductal dilatation. The gallbladder demonstrates several calcified gallstones. The spleen is unremarkable without mass. The adrenal glands are within normal limits without mass. The pancreas is unremarkable without focal lesion or surrounding inflammatory changes. There is no bowel obstruction or focal bowel inflammation. The appendix is unremarkable. There is diverticulosis without diverticulitis. There is no free air or free fluid. There are no enlarged lymph nodes. The prostate gland is enlarged and indents the bladder base. It measures 6.3 x 4.3 cm. The aorta is unremarkable and there is no acute osseous abnormality. There is aortic atherosclerosis without aneurysmal dilatation. Degenerative changes are seen in the lumbar spine with no acute osseous abnormality. The uterus and adnexal structures within normal limits. IMPRESSION: Obstructing 4 mm stone is seen on the left side located in the left distal ureter. This causes 1 ounce left hydronephrosis. There is no hydronephrosis or ureteral stone on the contralateral side. No evidence of bowel obstruction or inflammation. There is diverticulosis without diverticulitis. Atherosclerotic disease is present. Enlarged prostate gland indenting the bladder base. Bilateral renal hypodensities, probable renal cysts. RPTAT: AA .Ju Lanza MD, MD Date Time Electronically viewed and signed by .Ju Lanza MD, MD on 08/17/2017 16:00 .M/ CC: DOROTHEA BETTS DO Patient is a 4 mm left ureter stone. There is no urinary tract infection. Will treat with pain control and Flomax. Advised him to drink lots of water and stay hydrated and to return if he gets any worse Departure Diagnosis: Primary Impression: Renal calculus, left Condition: Stable Patient Instructions: Kidney Stone W/ Colic Referrals: GERRI BROTHERS MD, APOSTOLOS A. DO Aug 17, 2017 17:21
== END 2017-08-17 18:21 | disposition home or self-care (01) ==
LOC: E/R 10:23
DX: N20.0 Calculus of kidney (principal); R40.2252 Coma scale, best verbal response, oriented, at arrival to emergency department; I10 Essential (primary) hypertension; R40.2142 Coma scale, eyes open, spontaneous, at arrival to emergency department; R40.2362 Coma scale, best motor response, obeys commands, at arrival to emergency department; Z79.82 Long term (current) use of aspirin; Z85.828 Personal history of other malignant neoplasm of skin
CPT/HCPCS: 36415; 74176; 80053; 81001; 85025; 87086; 99285; J7040

== ENCOUNTER 2017-09-09 11:45 | Emergency (ER) | payer OTHER ==
[~2017-09-09] VITALS: Ht 162.6 cm; Wt 81.5 kg
[~2017-09-09 11:45] MED LIST changes: -ACET500C5 PO; +AMLO5TAB4 PO; -ASPI81TA3 PO; +ATOR10TA65 PO; +HYDR-905 PO; -LISI20TA11 PO; +LISI40TA9 PO; +TAMS-14 PO
[2017-09-09 12:11] VITALS: Ht 162.6 cm; Wt 81.5 kg
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
--- NOTE | 2017-09-09 13:40 | RADRPT ---
PROCEDURE: Chest 1 views. CLINICAL INDICATION: Left chest pain and trauma. TECHNIQUE: AP views of the chest was obtained. COMPARISON: None. FINDINGS: The heart is large. Scattered atelectasis is seen in both lungs. No consolidations are identified. No pneumothorax is seen. The osseous structures appear intact. IMPRESSION: Cardiomegaly . No visualized traumatic injury. Scattered atelectasis in both lungs. If there is high clinical suspicion for traumatic injury, further evaluation with CT should be consi dered. RPTAT: AA .Peewee Mckinley MD, MD Date Time Electronically viewed and signed by .Peewee Mckinley MD, on 09/09/2017 13:39 .P/
[2017-09-09] MEDS ORDERED: ACET-2047 PO (13:59)
== END 2017-09-09 14:24 | disposition home or self-care (01) ==
LOC: FTE 11:45
DX: R07.81 Pleurodynia (principal); I10 Essential (primary) hypertension; Z85.828 Personal history of other malignant neoplasm of skin
CPT/HCPCS: 71010

== ENCOUNTER 2017-10-22 10:42 | Emergency (ER) | payer OTHER ==
[~2017-10-22] VITALS: Wt 81.5 kg
[~2017-10-22 10:42] MED LIST changes: +ACET-2047 PO
--- NOTE | 2017-10-22 11:20 | RADRPT ---
PROCEDURE: Chest x-ray CLINICAL INDICATION: Cough TECHNIQUE: Chest single view COMPARISON: 09/09/2017 FINDINGS: There is stable mild cardiomegaly and an sclerotic aortic calcification. The pulmonary vessels are normal in caliber. The lungs are clear. The costophrenic angles are sharp. The visualized bony th orax is unremarkable. IMPRESSION: No acute cardiopulmonary disease. Stable mild cardiomegaly and atherosclerotic aortic calcification RPTAT: HH .Kang Mclean MD, MD Date Time Electronically viewed and signed by .Kang Mclean MD, on 10/22/2017 11:19 .W/
[2017-10-22] MEDS ORDERED: BENZ100C70 PO (11:30)
--- NOTE | 2017-10-22 13:10 | ERD ---
ER Documentation Chief Complaint Chief Complaint Cough HPI Patient is a 87-year-old male with a history of previous cancer which is been resolved who presents with a cough. His friend has the same cough as well. He was spitting up some phlegm. He had subjective fever but did not take his temperature. He did not feel well. The symptoms started 2 days ago. He tried Robitussin. Upon review of old medical records he does have multiple visits for other complaints to the emergency department. ROS All systems reviewed and are negative except as per history of present illness. Medications Home Meds Active Scripts Benzonatate* (Tessalon Perle*) 100 Mg Capsule, 100 MG PO Q8H Y for COUGH, #30 CAP Prov:CHAKA GIRALDO MD 10/22/17 Acetaminophen* (Acetaminophen*) 650 Mg Tablet, 650 MG PO Q6H Y for PAIN AND OR ELEVATED TEMP, #30 TAB Prov:NIKOLAY HORN MD 09/09/17 Tamsulosin Hcl* (Flomax*) 0.4 Mg Cap.er.24h, 0.4 MG PO BID, #30 CAP Prov:DOROTHEA BETTS DO 08/17/17 Hydrocodone/Acetaminophen ([place] 7.5-325 Tablet) 1 Each Tablet, 1 EACH PO q 4-6 hours, #20 TAB Prov:DOROTHEA BETTS DO 08/17/17 Reported Medications Atorvastatin Calcium (Atorvastatin Calcium) 10 Mg Tablet, 10 MG PO QHS, #30 TAB 08/17/17 Amlodipine Besylate* (Norvasc*) 5 Mg Tablet, 5 MG PO DAILY, TAB 08/17/17 Lisinopril* (Lisinopril*) 40 Mg Tablet, 40 MG PO DAILY, #30 TAB 08/17/17 Levetiracetam* (Keppra*) 500 Mg Tablet, 500 MG PO BID, TAB 05/30/16 Allergies Allergies: Coded Allergies: No Known Allergy (Unverified , 08/17/17) PMhx/Soc History of Surgery: Yes (CATARACTS; SKIN CANCER) Anesthesia Reaction: No Hx Neurological Disorder: No Hx Respiratory Disorders: No Hx Cardiac Disorders: Yes (HTN) Hx Psychiatric Problems: No Hx Miscellaneous Medical Probl: No Hx Alcohol Use: No Hx Substance Use: No Hx Tobacco Use: No Smoking Status: Never smoker FmHx Family History: No diabetes Physical Exam Vitals Vital Signs Date Time Temp Pulse Resp B/P Pulse Ox O2 Delivery O2 Flow Rate FiO2 10/22/17 10:45 98.6 75 24 150/74 97 Physical Exam Const: No acute distress Head: Atraumatic Eyes: Normal Conjunctiva ENT: Normal External Ears, Nose and Mouth. Neck: Full range of motion..~ No meningismus. Resp: Clear to auscultation bilaterally Cardio: Regular rate and rhythm, no murmurs Abd: Soft, non tender, non distended. Normal bowel sounds Skin: No petechiae or rashes Back: No midline or flank tenderness Ext: No cyanosis, or edema Neur: Awake and alert Psych: Normal Mood and Affect Procedures/MDM Chest x-ray negative for pneumonia or pneumothorax per radiology. Patient is a 87-year-old male presents with a cough. X-ray shows no pneumonia or pneumothorax. At this point I believe outpatient management is appropriate. I do not believe the patient requires antibiotics. I believe this is likely a viral upper respiratory infection. The patient will be given a prescription for Tessalon for symptomatically relief. He is well-appearing upon discharge. He should follow-up closely with his primary doctor within 24-48 hours. Departure Diagnosis: Primary Impression: URI (upper respiratory infection) URI type: unspecified URI Qualified Code: J06.9 - Upper respiratory tract infection, unspecified type Additional Impression: Cough Condition: Fair Patient Instructions: Uri, Viral, No Abx (Adult) Additional Instructions: Call your primary care doctor TOMORROW for an appointment during the next 1-2 days.See the doctor sooner or return here if your condition worsens before your appointment time. CHAKA GIRALDO MD Oct 22, 2017 13:10
== END 2017-10-22 11:59 | disposition home or self-care (01) ==
LOC: E/R 10:42
DX: J06.9 Acute upper respiratory infection, unspecified (principal); I10 Essential (primary) hypertension; Z85.828 Personal history of other malignant neoplasm of skin
CPT/HCPCS: 71010